=== PATIENT | male | born 1955 | race American Indian/Alaskan Native ===

== ENCOUNTER 2017-11-25 13:24 | Emergency (ER) | payer OTHER ==
[2017-11-25 13:44] VITALS: BMI 19.3
--- NOTE | 2017-11-25 14:25 | ED PDOC ---
Arrival/HPI - General Time Seen by Provider: 11/25/17 13:38 Historian: Patient, EMS - History of Present Illness Time/Duration: Prior to Arrival Symptom Onset: Sudden Symptom Course: Unchanged Activities at Onset: Light Associated Symptoms (Text): 11/25/17 14:14 Patient reports that he "fell out", implying that he had a seizure this morning. He fell down the steps but denies any injury or trauma. He states that he has a seizure history and he takes a "little blue pill", but does not know what it is. He states that he had abdominal pain this morning, but the abdominal pain has resolved. No genitourinary symptoms. No fever or chills. Past Medical History - Provider Review Nursing Documentation Reviewed: Yes Family/Social History - Physician Review Nursing Documentation Reviewed: Yes Family/Social History: Unknown Family HX Smoking Status: Light Smoker < 10 Cigarettes Daily Hx Alcohol Use: Yes Hx Substance Use: No Allergies/Home Meds Allergies/Adverse Reactions: Allergies No Known Allergies Allergy (Verified 11/25/17 13:38) Review of Systems - Physician Review All systems were reviewed & negative as marked: Yes - Review of Systems Constitutional: Fatigue. absent: Fevers Respiratory: absent: SOB, Cough, Wheezing Cardiovascular: absent: Chest Pain, Palpitations, Syncope Gastrointestinal: Abdominal Pain. absent: Diarrhea, Nausea, Vomiting Neurological: Seizure. absent: Headache, Dizziness, Focal Weakness, Gait Changes Physical Exam Vital Signs Reviewed: Yes Vital Signs Pulse Resp BP 11/25/17 13:38 70 20 130/79 Temperature: Afebrile Blood Pressure: Normal Pulse: Regular Respiratory Rate: Normal Appearance: Positive for: Well-Appearing, Non-Toxic, Comfortable Pain Distress: None Mental Status: Positive for: Alert and Oriented X 3 - Systems Exam Head: Present: Atraumatic, Normocephalic Pupils: Present: PERRL Extroacular Muscles: Present: EOMI Conjunctiva: Present: Normal Mouth: Present: Moist Mucous Membranes Pharnyx: No: ERYTHEMA, EXUDATE, TONSILS ENLARGED Neck: Present: Normal Range of Motion Respiratory/Chest: Present: Clear to Auscultation, Good Air Exchange, Decreased Breath Sounds. No: Respiratory Distress, Accessory Muscle Use Cardiovascular: Present: Regular Rate and Rhythm, Normal S1, S2. No: Murmurs Abdomen: No: Tenderness, Distention, Peritoneal Signs, Rebound, Guarding Back: Present: Normal Inspection Upper Extremity: Present: Normal Inspection. No: Cyanosis, Edema Lower Extremity: Present: Normal Inspection. No: Edema Neurological: Present: GCS=15, CN II-XII Intact, Speech Normal, Motor Func Grossly Intact Skin: Present: Warm, Dry, Normal Color. No: Rashes Psychiatric: Present: Alert, Oriented x 3, Normal Insight, Normal Concentration Medical Decision Making ED Course and Treatment: 11/25/17 14:20 Impression: 62 year old male presents to the emergency department for "falling out", implying that he had a seizure this morning. Plan: -- CT of head w/o contrast -- EKG -- Labs -- CBC (with differential) -- Urine culture -- Urinalysis W/Micro -- Reassess and disposition Progress Notes: 11/25/17 14:26 EKG shows normal sinus rhythm rate approximately [address] and T- wave changes with no old available for comparison. CT of head reviewed by radiologist, shows: Dictator : DR. Hyatt, Hazel [facility] Report Date : 11/25/2017 15:37:08 FINDINGS: HEMORRHAGE: No intracranial hemorrhage. BRAIN: There are mild chronic microangiopathic changes. There is no mass, mass effect or abnormal extra-axial fluid collection. There is no territorial infarction. The midline sagittal structures are normal. VENTRICLES: There is moderate age-related global parenchymal volume loss and proportionate enlargement of the ventricles and cortical sulci. CALVARIUM: The skull base and calvarium are normal. PARANASAL SINUSES: Predominantly clear. MASTOID AIR CELLS: Predominantly clear. OTHER FINDINGS: None. IMPRESSION: No acute intracranial abnormality. Mild chronic microangiopathic changes and mild age-related global parenchymal volume loss. 11/25/17 15:55 11/25/17 16:52 Patient's workup is unremarkable. CT scan shows no acute findings. Blood work is unrevealing, other than an elevated alcohol. Patient will be discharged home to follow-up with PMD. Follow up in ER as needed. - RAD Interpretation Radiology Orders: 11/25/17 13:44 HEAD W/O CONTRAST [CT] Stat Supply Analyst: Radiologist - EKG Interpretation Interpreted by ED Physician: Yes Type: 12 lead EKG - Scribe Statement The provider has reviewed the documentation as recorded by the Scribe Gloria Melton All medical record entries made by the Scribe were at my direction and personally dictated by me. I have reviewed the chart and agree that the record accurately reflects my personal performance of the history, physical exam, medical decision making, and the department course for this patient. I have also personally directed, reviewed, and agree with the discharge instructions and disposition. Disposition/Present on Arrival - Present on Arrival Any Indicators Present on Arrival: No History of DVT/PE: No History of Uncontrolled Diabetes: No Urinary Catheter: No History of Decub. Ulcer: No - Disposition Have Diagnosis and Disposition been Completed?: Yes Diagnosis: Seizure, Alcohol abuse Disposition: HOME/ ROUTINE Disposition Time: 16:53 Patient Plan: Discharge Condition: FAIR Discharge Instructions (ExitCare): Seizures, Adult (DC), Alcohol Abuse and Alcoholism (DC)
[2017-11-25 14:53] LABS: URINE APPEARANCE CLEAR (CLEAR); URINE BILIRUBIN NEGATIVE (NEGATIVE); URINE BLOOD NEGATIVE (NEGATIVE); URINE COLOR YELLOW (YELLOW); URINE GLUCOSE (UA) NEGATIVE (NEGATIVE); URINE LEUKOCYTE ESTERASE TRACE Leu/uL (NEGATIVE); URINE PROTEIN NEGATIVE mg/dL (<30 mg/dL); URINE UROBILINOGEN 0.2 E.U./dL (<1 E.U./dL)
[2017-11-25 15:00] LABS: URINE BACTERIA MOD (NEG); URINE EPITHELIAL CELLS 0 - 2 /hpf (0-5); URINE RBC 0 - 2 /hpf (0-2)
[2017-11-25 15:05] LABS: BARBITURATES, UR NEGATIVE (NEGATIVE); BENZODIAZEPINES, UR POSITIVE (NEGATIVE); OPIATES, UR NEGATIVE (NEGATIVE); PHENCYCLIDINE, UR NEGATIVE (NEGATIVE)
--- NOTE | 2017-11-25 15:08 | CARD ---
APPROVED REPORT Date of service: 11/25/2017 EKG Measurement Heart [id number] <Conclusion> Normal sinus rhythm Nonspecific ST and T wave abnormality Abnormal ECG
--- NOTE | 2017-11-25 15:38 | CT ---
Date of service: 11/25/2017 PROCEDURE: CT HEAD WITHOUT CONTRAST. HISTORY: Seizure COMPARISON: None available. TECHNIQUE: Axial computed tomography images were obtained through the head/brain without intravenous contrast. Radiation dose: Total exam DLP = 894.25 mGy-cm. This CT exam was performed using one or more of the following dose reduction techniques: Automated exposure control, adjustment of the mA and/or kV according to patient size, and/or use of iterative reconstruction technique. FINDINGS: HEMORRHAGE: No intracranial hemorrhage. BRAIN: There are mild chronic microangiopathic changes. There is no mass, mass effect or abnormal extra-axial fluid collection. There is no territorial infarction. The midline sagittal structures are normal. VENTRICLES: There is moderate age-related global parenchymal volume loss and proportionate enlargement of the ventricles and cortical sulci. CALVARIUM: The skull base and calvarium are normal. PARANASAL SINUSES: Predominantly clear. MASTOID AIR CELLS: Predominantly clear. OTHER FINDINGS: None. IMPRESSION: No acute intracranial abnormality. Mild chronic microangiopathic changes and mild age-related global parenchymal volume loss.
[2017-11-25 16:19] LABS: BASO # 0.02 K/mm3 (0.0-2.0); BASO % 0.3 % (0.0-3.0); EOS # 0.3 (0.0-0.7); GRAN # 3.54 (1.4-6.5); GRAN % 56.6 % (50.0-68.0); HEMOGLOBIN 11.4 g/dL (14.0-18.0); LYMPH # 2.1 (1.2-3.4); LYMPH % 33.8 % (22.0-35.0); MEAN CORPUSCULAR HEMOGLOBIN 28.5 pg (25.0-35.0); MEAN CORPUSCULAR HGB CONC 33.1 g/dl (31.0-37.0); MEAN PLATELET VOLUME 10.2 fl (7.0-11.0); MONO # 0.3 (0.1-0.6); MONO % 4.3 % (1.0-6.0); RED CELL DISTRIBUTION WIDTH 14.2 % (11.5-14.5); WHITE BLOOD COUNT 6.3 10^3/ul (4.5-11.0)
[2017-11-25 16:34] LABS: BLOOD UREA NITROGEN 7 mg/dL (7-21); GFR NON-AFRICAN AMERICAN > 60; LIPASE 34 U/L (23-300)
[2017-11-25 16:37] LABS: ALBUMIN 3.9 g/dL (3.0-4.8); ALT/SGPT 14 U/L (7-56); AST/SGOT 51 U/L (17-59)
[2017-11-25 16:51] VITALS: BP 127/65; PULSE 62; RESP 18; TEMP 97.8; O2SAT 96
== END 2017-11-25 17:00 | disposition home or self-care (01) ==
LOC: MERGE 13:24 → ED 13:24
DX: R56.9 Unspecified convulsions (principal); F10.10 Alcohol abuse, uncomplicated; Y90.6 Blood alcohol level of 120-199 mg/100 ml